=== PATIENT | male | born 1975 | race Hispanic/Latino ===

== ENCOUNTER 2018-08-09 10:41 | Inpatient (IN) | payer OTHER ==
[~2018-08-09] VITALS: Ht 167.6 cm; Wt 79.2 kg
[2018-08-09] MEDS ORDERED: ONDANSETRON HCL 4 MG/2 ML VIAL ONE (11:03)
[2018-08-09] MEDS ORDERED: MORPHINE SULFATE 4 MG/1ML SYG ONE (11:03)
[2018-08-09 11:09] LABS: BASOPHILS % (AUTO) 0.3 % (0.0-5.0); EOSINOPHILS % (AUTO) 0.1 % (0.0-8.0); HEMATOCRIT 55.3 % (42-54); LYMPHOCYTES % (AUTO) 5.4 % (21.0-51.0); MEAN CORPUSCULAR HEMOGLOBIN 29.7 pg (27.0-33.0); MEAN CORPUSCULAR HGB CONC 33.9 g/dL (32.0-36.0); MEAN CORPUSCULAR VOLUME 87.6 fL (79-99); MONOCYTES % (AUTO) 5.5 % (3.0-13.0); NEUTROPHILS % (AUTO) 88.7 % (40.0-77.0); NUCLEATED RED BLOOD CELLS 0.1 % (0.0-0.19); PLATELET COUNT (AUTO) 288 K/uL (130-400); RED BLOOD CELL COUNT(AUTO) 6.32 MIL/uL (4.50-6.20); RED CELL DISTRIBUTION WIDTH 13.3 % (11.0-15.5); WHITE BLOOD COUNT (AUTO) 9.8 K/uL (4.8-10.8)
[2018-08-09] MEDS ORDERED: SODIUM CHLORIDE 0.9% 1000ML 2,000 ML IV ONE (11:09)
[2018-08-09] MEDS ORDERED: ZOSYN 3.375GM+NS 50ML 50 ML IV ONE (11:16)
[2018-08-09 11:19] LABS: CARBON DIOXIDE 20 mmol/L (21-32); CHLORIDE 96 mmol/L (101-111); CREATININE 1.3 mg/dL (0.5-1.5); GLOMERULAR FILTR. RATE CALC 64 mL/min (>60); GLUCOSE,RANDOM 147 mg/dL (70-105); POTASSIUM 3.1 mmol/L (3.5-5.1); SODIUM SERUM 134 mmol/L (136-145); UREA NITROGEN, BLOOD 15 mg/dL (7-18)
[2018-08-09 11:34] LABS: ALANINE AMINOTRANSFERASE 25 U/L (12-78); ASPARTATE AMINOTRANSFERASE 15 U/L (10-37); BILIRUBIN,TOTAL 0.4 mg/dL (0.2-1.0); CREATINE KINASE, TOTAL 122 U/L (21-232); MYOGLOBIN 49 ng/mL (10-92); TOTAL PROTEIN, SERUM 9.2 g/dL (6.0-8.3); TROPONIN I < 0.04 ng/mL (0.00-0.06)
[2018-08-09 11:42] LABS: INR 0.89 (0.85-1.15); PARTIAL THROMBOPLASTIN TIME 28.8 SEC (26.3-35.5); PROTHROMBIN TIME 9.4 SEC (9.6-11.6)
[2018-08-09] MEDS: SODIUM CHLORIDE 0.9% 1000ML 1,000 ML IV SCH (15:34)
[2018-08-09] MEDS ORDERED: ACETAMINOPHEN 325 MG TAB PO PRN ×2 (15:45)
[2018-08-09] MEDS ORDERED: ONDANSETRON HCL 4 MG/2 ML VIAL IV PRN (15:45)
[2018-08-09] MEDS ORDERED: METRONIDAZOLE 500MG/100ML BAG 100 ML ONE (16:19)
[2018-08-09] MEDS ORDERED: SODIUM CHLORIDE 0.9% 1000ML 1,000 ML IV ONE (16:20)
[2018-08-09 16:27] LABS: MAGNESIUM 1.9 mg/dL (1.80-2.40); PHOSPHORUS 3.8 mg/dL (2.5-4.9)
[2018-08-09] MEDS ORDERED: MORPHINE SULFATE 2 MG/ML 1ML SYG ONE ×2 (16:55→21:30)
[2018-08-09 22:55] VITALS: BP 145/89
--- NOTE | 2018-08-09 23:00 | NUR ---
ADMIT PT ADMITTED TO ROOM 313. AAOX3, DENIES ANY ABDOMINAL PAINS AT THIS TIME. ADMISSION CARE DONE. ADMISSION DATA BASE COMPLETED. IVF FROM ER PLACED IN THE IV PUMP THEN REGULATED AT 100CC/HR. PENDING MEDS OF PEPCID AND FLAGYL IV ADMINISTERED. ORIENTED TO ROOM AND UNIT. IN FOR MORE CARE AND MANAGEMENT. Addendum: 08/10/18 at 0055 by ALONSO POE RN RN Amended: Links added.
[2018-08-09] MEDS: METRONIDAZOLE 500MG/100ML BAG 100 ML IV SCH (23:42)
[2018-08-09] MEDS: FAMOTIDINE/PF 20 MG/2 ML VIAL IV SCH (23:42)
[2018-08-10] VITALS: BP 124/65
--- NOTE | 2018-08-10 00:10 | NUR ---
STOOL PT HAD A LOOSE BM, COLLECTED STOOL FOR GI PCR. SENT TO LAB. PT PROVIDED WITH ICE WATER, APPLE JUICE AND JELL-O. KEPT RESTED AND COMFORTABLE. CALL LIGHT WITHIN REACH. WILL MONITOR PT.
[2018-08-10] MEDS: SODIUM CHLORIDE 0.9% 1000ML 1,000 ML IV SCH ×3 (00:56→21:34)
--- NOTE | 2018-08-10 02:00 | NUR ---
ROUNDS PT FAIRLY ASLEEP WITH RESPIRATIONS EVEN AND UNLABORED. NO NOTED DISTRESS. KEPT UNDISTURBED FOR NOW. CALL LIGHT WITHIN REACH. WILL MONITOR PT.
[2018-08-10 04:00] VITALS: BP 125/74
[2018-08-10] MEDS: MORPHINE SULFATE 2 MG/ML 1ML SYG IV PRN ×4 (04:12→23:26)
--- NOTE | 2018-08-10 06:18 | NUR ---
PAINS PT CALLS FOR PAIN MEDS FOR ABDOMINAL PAINS. MEDICATED WITH MORPHINE IV. KEPT COMFORTABLE. WILL RE-ASSESS PT.
[2018-08-10] MEDS: METRONIDAZOLE 500MG/100ML BAG 100 ML IV SCH ×3 (07:20→23:29)
[2018-08-10] MEDS: FAMOTIDINE/PF 20 MG/2 ML VIAL IV SCH ×2 (07:20→21:14)
[2018-08-10 07:45] VITALS: BP 141/79
[2018-08-10 10:09] LABS: BASOPHILS % (AUTO) 0.8 % (0.0-5.0); EOSINOPHILS % (AUTO) 0.8 % (0.0-8.0); LYMPHOCYTES % (AUTO) 21.7 % (21.0-51.0); MEAN CORPUSCULAR HEMOGLOBIN 31.1 pg (27.0-33.0); MEAN CORPUSCULAR HGB CONC 35.1 g/dL (32.0-36.0); MEAN CORPUSCULAR VOLUME 88.5 fL (79-99); NEUTROPHILS % (AUTO) 65.7 % (40.0-77.0); PLATELET COUNT (AUTO) 227 K/uL (130-400); RED BLOOD CELL COUNT(AUTO) 5.08 MIL/uL (4.50-6.20); RED CELL DISTRIBUTION WIDTH 13.3 % (11.0-15.5)
[2018-08-10 10:14] LABS: CRP QUANTITATIVE 71.3 mg/L (0.00-9.0); POTASSIUM 3.1 mmol/L (3.5-5.1)
[2018-08-10] MEDS ORDERED: VENL75 PO (10:31)
[2018-08-10] MEDS ORDERED: HYDR-3421 PO (10:31)
[2018-08-10] MEDS ORDERED: GABA600T10 PO (10:31)
[2018-08-10 10:36] LABS: INR 0.89 (0.85-1.15); PROTHROMBIN TIME 9.4 SEC (9.6-11.6)
[2018-08-10 11:00] VITALS: BP 146/88
[2018-08-10] MEDS ORDERED: LIDOCAINE HCL-MPF 1% 2ML VIAL IVP PRN (11:45)
[2018-08-10] MEDS ORDERED: POTASSIUM CHLORIDE 10% ELIXIR 20 MEQ/15 ML UDCUP PO PRN (11:45)
[2018-08-10] MEDS ORDERED: POTASSIUM CHLORIDE 20MEQ/100ML 100 ML IV PRN (11:45)
[2018-08-10] MEDS ORDERED: HYDROXYZINE HCL 25 MG TABLET PO PRN (12:45)
[2018-08-10] MEDS: VENLAFAXINE HCL 75 MG TAB PO SCH (13:18)
[2018-08-10] MEDS: GABAPENTIN 300 MG CAPSULE PO SCH ×2 (13:18→21:14)
[2018-08-10] MEDS: POTASSIUM CHLORIDE 20 MEQ ERTAB PO PRN ×3 (14:00→21:14)
--- NOTE | 2018-08-10 14:30 | NUR ---
INITIAL MET W PATIENT; ALONE, STATES DOES NOT KNOW WHERE IS IS GOING TO LIVE AFTER DISCHARGE; STES USES NO DME; INDP OF ADLS; STATES IS A DRINKER, DRINKS EVERY DAY, IF HE STOPS DRINKNING HE WILL DIES PER THE MDS. HAS NOT HAD A DRINK SHANKAR 3 DAYS; WAS IN [employer]. Addendum: 08/10/18 at 1829 by CLAIRE MALHOTRA RN CM Amended: Links added.
[2018-08-10 15:48] LABS: APPEARANCE,URINE Clear (CLEAR); BILIRUBIN,URINE Negative (NEGATIVE); COLOR,URINE Yellow (YELLOW); GLUCOSE, URINE (UA) Negative (NEGATIVE); KETONES,URINE 15 mg/dL (NEGATIVE); LEUKOCYTE ESTERASE ,URINE Trace (NEGATIVE); NITRATE,URINE Negative (NEGATIVE); OCCULT BLOOD,URINE Negative (NEGATIVE); PH,URINE 6.5 (5.0-8.0); PROTEIN,URINE Trace mg/dL (NEGATIVE); UROBILINOGEN,URINE 0.2 mg/dL (0.2-1.0)
[2018-08-10 15:52] LABS: AMPHET/METH SCREEN,URINE NEGATIVE (NEGATIVE); BARBITURATE SCREEN, URINE NEGATIVE (NEGATIVE); BENZODIAZEPINES SCREEN,URINE NEGATIVE (NEGATIVE); CANNABINOID SCREEN,URINE POSITIVE (NEGATIVE); COCAINE SCREEN,URINE POSITIVE (NEGATIVE); OPIATE SCREEN,URINE POSITIVE (NEGATIVE); PHENCYCLIDINE SCREEN,URINE NEGATIVE (NEGATIVE)
[2018-08-10 16:00] VITALS: BP 152/111
--- NOTE | 2018-08-10 16:00 | NUR ---
TONY Antony 'HOME' WILL TALK TO PT AGAIN ABOUT LIVING ARRANGMENT POST DISCHARGE. ALERTED CHARGE NURSE TO DRINKING HABITS AND POSSIBLE NEED FOR WITHDRAWAL PROTOCOL. Addendum: 08/10/18 at 1829 by CLAIRE MALHOTRA RN CM Amended: Links added.
[2018-08-10 16:06] LABS: RBC,URINE 0-1 /HPF (0-1)
[2018-08-10 16:08] LABS: BACTERIA,URINE Rare /HPF (None Seen); MUCUS,URINE Few LPF (None Seen); SQUAMOUS EPITHELIAL CELL,UR Rare /HPF (0-2)
[2018-08-10] MEDS ORDERED: PEG 3350/NA SULF,BICARB,CL/KCL 4000 ML SOLN PO SCH (17:00)
--- NOTE | 2018-08-10 17:03 | NUR ---
DIRK JUAN MANUEL PREP AT T HE BEDSIDE ORDER FOR PREPING FOR A COLONSCOPY IN AM.
[2018-08-10 20:00] VITALS: BP 157/105
--- NOTE | 2018-08-10 20:59 | NUR ---
NOTE PATIENT TAKING PREP WELL. HAVING STOOLS. NOTIFIED PATIENT TO CALL TO SEE STOOLS.
--- NOTE | 2018-08-10 22:20 | NUR ---
NOTE STOOL CLEAR GREEN TINGED. MINIMAL AMOUNT OF SOLID SPECKS NOTED. CONTINUES TAKING PREP.
--- NOTE | 2018-08-10 23:55 | NUR ---
NOTE PATIENT FINISHED WITH PREP. STOOLS ARE NOW LIGHT YELLOW IN COLOR WITH NO SOLID MATTER NOTED.
[2018-08-11] VITALS (12 sets, daily range): BP systolic 101–157; BP diastolic 69–105
[2018-08-11 06:08] LABS: CREATININE 0.9 mg/dL (0.5-1.5); POTASSIUM 3.6 mmol/L (3.5-5.1)
[2018-08-11] MEDS ORDERED: PROPOFOL 10 MG/ML 20ML VIAL IV ONE (06:19)
[2018-08-11] MEDS ORDERED: MIDAZOLAM HCL 1 MG/ML 2ML VIAL ONE (06:19)
--- NOTE | 2018-08-11 07:25 | NUR ---
Report received from GI lab , alert and oriented x3 b/p 128/90 o2 sats 99 on room air p 81 Cortes pain will continue to monitor. receive diet order for soft diet.
[2018-08-11] MEDS: FAMOTIDINE/PF 20 MG/2 ML VIAL IV SCH (08:25)
[2018-08-11] MEDS: METRONIDAZOLE 500MG/100ML BAG 100 ML IV SCH ×2 (08:25→16:00)
[2018-08-11] MEDS: SODIUM CHLORIDE 0.9% 1000ML 1,000 ML IV SCH ×2 (08:26→17:34)
[2018-08-11] MEDS: VENLAFAXINE HCL 75 MG TAB PO SCH (08:26)
[2018-08-11] MEDS: GABAPENTIN 300 MG CAPSULE PO SCH ×2 (08:27→14:10)
--- NOTE | 2018-08-11 10:05 | NUR ---
+UDS Sw met with pt who states he is staying with the father of a friend and works. Pt has a 24yro son that he has not contat with, been 3xs, is a retired . Pt states he has PTSD and IED, and may be Bipolar was as well. Pt is seen at [facility] for psych care and meds but reports that [place] psych care is very unreliable ( psychiatrist are changed offend, and this causes delays and changes in treatment and meds). Pt states that THC is only thing that helps keep him stable, and cocaine is to help him sleep. "I am not going to stop". "I am going to stop drinking, I have to. I am not going thru this pain again". Sw offered resources and pt refused
--- NOTE | 2018-08-11 19:00 | NUR ---
PATIENT GIVEN DISCHARGE INSTRUCTION AND VERBALIZED UNDERSTANDING , IV REMOVED WITH CATHETER INTACT , NO QUESTIONS OR CONCERN VOICED PATIENT TO FOLLOW-UP WITH DR JUDD IN 1 ONE AND IS TO CALL FOR AN APPOINTMENT , PATIENT TRANSPORTED VIA WHEELCHAIR TO LOBBY WITH MOTHER AT HIS SIDE AND LEFT FOR HOME
== END 2018-08-11 19:00 | disposition home or self-care (01) | DRG 391 ==
LOC: EDH 10:41 → EDHIP 15:34 → 3CH 23:10
PROVIDERS: ADMIT Internal Medicine; ATTEND Internal Medicine
PROC: 0DBB8ZX Excision of Ileum, Via Natural or Artificial Opening Endoscopic, Diagnostic (ICD-10-PCS; principal; 2018-08-11)
PROC: 0DBL8ZX Excision of Transverse Colon, Via Natural or Artificial Opening Endoscopic, Diagnostic (ICD-10-PCS; 2018-08-11)
PROC: 0DBP8ZX Excision of Rectum, Via Natural or Artificial Opening Endoscopic, Diagnostic (ICD-10-PCS; 2018-08-11)
PROC: 0DBF8ZX Excision of Right Large Intestine, Via Natural or Artificial Opening Endoscopic, Diagnostic (ICD-10-PCS; 2018-08-11)
PROC: 0DBG8ZX Excision of Left Large Intestine, Via Natural or Artificial Opening Endoscopic, Diagnostic (ICD-10-PCS; 2018-08-11)
DX: A09 Infectious gastroenteritis and colitis, unspecified (principal); K57.31 Diverticulosis of large intestine without perforation or abscess with bleeding; E87.1 Hypo-osmolality and hyponatremia; E86.1 Hypovolemia; E87.6 Hypokalemia; F17.210 Nicotine dependence, cigarettes, uncomplicated; F43.10 Post-traumatic stress disorder, unspecified; K64.0 First degree hemorrhoids
CPT/HCPCS: 36415; 45380; 71045; 74176; 80048; 80053; 80305; 81001; 82550; 83605; 83735; 83874; 84100; 84484; 85025; 85610; 85651; 85730; 86140; 87040; 87046; 87088; 87324; 93005; G0378; J2250; J2270; J2405; J2543; J2704; J3490; J7030

== ENCOUNTER 2021-01-18 12:29 | Emergency (ER) | payer OTHER ==
[~2021-01-18] VITALS: Ht 167.6 cm; Wt 80.7 kg
[~2021-01-18 12:29] MED LIST: GABA600T10 PO; HYDR-3421 PO; VENL75 PO
[2021-01-18 12:43] VITALS: BP 156/105
[2021-01-18] MEDS ORDERED: ONDANSETRON 4MG INJ IVP SCH (13:00)
[2021-01-18 13:08] LABS: BASOPHILS % (AUTO) 0.3 % (0.0-5.0); HEMATOCRIT 47.7 % (42-54); LYMPHOCYTES % (AUTO) 7.1 % (21.0-51.0); MEAN CORPUSCULAR HGB CONC 33.5 g/dL (32.0-36.0); MEAN CORPUSCULAR VOLUME 89.5 fL (79-99); MONOCYTES % (AUTO) 5.3 % (3.0-13.0); PLATELET COUNT (AUTO) 278 K/uL (130-400); RED BLOOD CELL COUNT(AUTO) 5.33 MIL/uL (4.50-6.20); RED CELL DISTRIBUTION WIDTH 13.1 % (11.0-15.5); WHITE BLOOD COUNT (AUTO) 7.9 K/uL (4.8-10.8)
[2021-01-18 13:22] LABS: CREATININE 1.1 mg/dL (0.5-1.5); POTASSIUM 3.7 mmol/L (3.5-5.1)
[2021-01-18 13:26] LABS: ALBUMIN 3.9 g/dL (3.5-5.0); BILIRUBIN,TOTAL 0.3 mg/dL (0.2-1.0); CRP QUANTITATIVE 16.6 mg/L (0.00-9.0); TOTAL PROTEIN, SERUM 8.1 g/dL (6.0-8.3)
[2021-01-18 13:43] LABS: APPEARANCE,URINE Cloudy (CLEAR); BILIRUBIN,URINE Negative (NEGATIVE); COLOR,URINE Dark Yellow (YELLOW); GLUCOSE, URINE (UA) Negative (NEGATIVE); KETONES,URINE Trace mg/dL (NEGATIVE); LEUKOCYTE ESTERASE ,URINE Trace (NEGATIVE); NITRATE,URINE Negative (NEGATIVE); OCCULT BLOOD,URINE Trace (NEGATIVE); PROTEIN,URINE POS 1+ mg/dL (NEGATIVE)
[2021-01-18] MEDS ORDERED: CIPR500S4 PO (13:50)
[2021-01-18] MEDS ORDERED: DICY20TA2 PO (13:50)
[2021-01-18] MEDS ORDERED: ONDA4TAB4 PO (13:50)
[2021-01-18] MEDS ORDERED: METR375C2 PO (13:50)
[2021-01-18 13:58] LABS: BACTERIA,URINE Rare /HPF (None Seen); MUCUS,URINE Moderate LPF (None Seen); SQUAMOUS EPITHELIAL CELL,UR Rare /HPF (0-2)
[2021-01-18] MEDS ORDERED: METRONIDAZOLE 500 MG TABLET PO SCH (14:00)
[2021-01-18] MEDS ORDERED: MORPHINE 2 MG SYG IVP ONE (14:00)
[2021-01-18] MEDS ORDERED: LEVOFLOXACIN 500 MG TABLET PO SCH (14:00)
== END 2021-01-18 14:10 | disposition home or self-care (01) ==
LOC: EDH 12:29
DX: K52.9 Noninfective gastroenteritis and colitis, unspecified (principal); K57.30 Diverticulosis of large intestine without perforation or abscess without bleeding; F41.9 Anxiety disorder, unspecified; I10 Essential (primary) hypertension; Z71.6 Tobacco abuse counseling; F17.200 Nicotine dependence, unspecified, uncomplicated; Z79.899 Other long term (current) drug therapy
CPT/HCPCS: 36415; 71045; 74176; 80053; 81001; 83690; 84484; 85025; 86140; 93005; 96374; 99285; J2405

== ENCOUNTER 2021-05-30 09:19 | Emergency (ER) | payer OTHER ==
[~2021-05-30] VITALS: Ht 167.6 cm; Wt 81.6 kg
[~2021-05-30 09:19] MED LIST changes: +CIPR500S4 PO; +DICY20TA2 PO; +METR375C2 PO; +ONDA4TAB4 PO
[2021-05-30 09:24] VITALS: BP 145/86
[2021-05-30] MEDS ORDERED: KETOROLAC 60 MG VIAL (30MG/ML) ONE (09:40)
[2021-05-30] MEDS ORDERED: KETOROLAC 15MG/ML VIAL (15MG/ML) IV ONE (10:00)
[2021-05-30] MEDS ORDERED: KETOROLAC 30MG VIAL (30MG/ML) IM ONE (10:00)
[2021-05-30] MEDS ORDERED: IBUP-2070 PO (10:43)
[2021-05-30] MEDS ORDERED: LIDOCAINE 5% TOPICAL PATCH TP ONE (10:47)
[2021-05-30] MEDS ORDERED: LIDOCAINE 5% TOPICAL PATCH TP SCH (11:00)
== END 2021-05-30 10:57 | disposition home or self-care (01) ==
LOC: EDH 09:19
DX: S46.912A Strain of unspecified muscle, fascia and tendon at shoulder and upper arm level, left arm, initial encounter (principal); F43.10 Post-traumatic stress disorder, unspecified; I10 Essential (primary) hypertension; F17.200 Nicotine dependence, unspecified, uncomplicated; Z90.49 Acquired absence of other specified parts of digestive tract; Z79.899 Other long term (current) drug therapy; X58.XXXA Exposure to other specified factors, initial encounter; Y93.89 Activity, other specified; Y92.89 Other specified places as the place of occurrence of the external cause; Y99.8 Other external cause status
CPT/HCPCS: 73030; 96372; 99283; J1885

== ENCOUNTER 2022-09-26 15:28 | Emergency (ER) | payer BC, OTHER ==
[~2022-09-26] VITALS: Ht 167.6 cm; Wt 84.4 kg
[~2022-09-26 15:28] MED LIST changes: +IBUP-2070 PO
[2022-09-26 16:11] LABS: BASOPHILS % (AUTO) 0.5 % (0.0-5.0); EOSINOPHILS % (AUTO) 0.5 % (0.0-8.0); HEMATOCRIT 45.3 % (42-54); MEAN CORPUSCULAR HEMOGLOBIN 30.1 pg (27.0-33.0); MEAN CORPUSCULAR HGB CONC 33.8 g/dL (32.0-36.0); MONOCYTES % (AUTO) 7.7 % (3.0-13.0); NEUTROPHILS % (AUTO) 73.8 % (40.0-77.0); PLATELET COUNT (AUTO) 387 K/uL (130-400); RED BLOOD CELL COUNT(AUTO) 5.09 MIL/uL (4.50-6.20); RED CELL DISTRIBUTION WIDTH 13.2 % (11.0-15.5); WHITE BLOOD COUNT (AUTO) 8.3 K/uL (4.8-10.8)
[2022-09-26 16:50] LABS: ALBUMIN 3.9 g/dL (3.5-5.0); POTASSIUM 3.7 mmol/L (3.5-5.1); TOTAL PROTEIN, SERUM 7.9 g/dL (6.0-8.3)
[2022-09-26] MEDS ORDERED: ONDANSETRON 4MG INJ IVP SCH (17:30)
[2022-09-26] MEDS ORDERED: ONDANSETRON ODT 4MG TAB SL ONE (17:30)
[2022-09-26] MEDS ORDERED: LORAZEPAM 1 MG TABLET PO SCH (17:30)
[2022-09-26] MEDS ORDERED: VENLAFAXINE HCL 75 MG TAB PO SCH (17:30)
[2022-09-26 18:33] VITALS: BP 132/76
[2022-09-26] MEDS ORDERED: VENL-191 PO (18:33)
== END 2022-09-26 18:40 | disposition home or self-care (01) ==
LOC: EDH 15:28
DX: R11.2 Nausea with vomiting, unspecified (principal); T43.215A Adverse effect of selective serotonin and norepinephrine reuptake inhibitors, initial encounter; Y92.89 Other specified places as the place of occurrence of the external cause; F43.10 Post-traumatic stress disorder, unspecified; I10 Essential (primary) hypertension; F41.9 Anxiety disorder, unspecified; F32.A Depression, unspecified; F17.200 Nicotine dependence, unspecified, uncomplicated; Z79.899 Other long term (current) drug therapy; Z90.49 Acquired absence of other specified parts of digestive tract; Z98.890 Other specified postprocedural states
CPT/HCPCS: 36415; 71045; 80053; 82550; 84484; 85025; 93005

== ENCOUNTER 2024-08-19 07:53 | Emergency (ER) | payer OTHER ==
[~2024-08-19] VITALS: Ht 167.6 cm; Wt 86.2 kg
[~2024-08-19 07:53] MED LIST changes: +GABA-1405 PO; -GABA600T10 PO; +VENL-83 PO
--- NOTE | 2024-08-19 08:11 | NUR ---
REFER TO TRAUMA FLOW SHEET
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
[2024-08-19] MEDS: LACTATED RINGERS 1000ML IV STA (08:34)
[2024-08-19] MEDS: ketOROlac 30MG VIAL (30MG/ML) IVP ONE (08:34)
[2024-08-19] MEDS: CYCLOBENZAPRINE HCL 10 MG TABLET PO ONE (08:34)
[2024-08-19] MEDS: hydroMORPHone 2 MG VIAL (2MG/ML) IVP ONE (08:34)
[2024-08-19 08:49] LABS: BASOPHILS # (AUTO) 0.05 K/uL (0.00-0.20); BASOPHILS % (AUTO) 0.6 % (0.0-5.0); EOSINOPHILS # (AUTO) 0.07 K/uL (0.00-0.70); EOSINOPHILS % (AUTO) 0.9 % (0.0-8.0); HEMATOCRIT 42.5 % (42-54); IMMATURE GRANULOCYTE ABSOLUTE 0.06 K/uL (0-1); LYMPHOCYTES % (AUTO) 12.7 % (21.0-51.0); MEAN CORPUSCULAR HGB CONC 34.1 g/dL (32.0-36.0); MONOCYTES # (AUTO) 0.7 K/uL (0.1-1.0); MONOCYTES % (AUTO) 8.1 % (3.0-13.0); NEUTROPHILS # (AUTO) 6.3 K/uL (1.8-7.7); PLATELET COUNT (AUTO) 347 K/uL (130-400); RED CELL DISTRIBUTION WIDTH 13.5 % (11.0-15.5); WHITE BLOOD COUNT (AUTO) 8.2 K/uL (4.8-10.8)
[2024-08-19 08:55] LABS: CREATININE 0.8 mg/dL (0.5-1.3); POTASSIUM 3.4 mmol/L (3.5-5.1)
--- NOTE | 2024-08-19 09:17 | HMCIMG ---
PELVIS 1-2VWS HISTORY: Trauma COMPARISON: None TECHNIQUE: Frontal projection of the pelvis was obtained. FINDINGS: There is no acute displaced fracture or dislocation. Degenerative changes are seen. IMPRESSION: 1. Findings as described above.
--- NOTE | 2024-08-19 10:51 | HMCIMG ---
CERV SPINE 2-3VWS HISTORY: Injury COMPARISON: None FINDINGS: 4 images of cervical spine were obtained. There is straightening of normal lordotic curvature which may be related to muscle spasm or positioning. No loss of vertebral height is seen. No fracture or dislocation is seen. Degenerative changes are seen. IMPRESSION: 1. No fracture is seen.
--- NOTE | 2024-08-19 10:52 | HMCIMG ---
HIP UNILAT 2-3VW RIGHT HISTORY: Injury COMPARISON: None TECHNIQUE: 2 images of right hip were obtained. FINDINGS: There is no acute displaced fracture or dislocation. Minimal degenerative changes are seen. IMPRESSION: 1. Findings as described above.
[2024-08-19] MEDS ORDERED: CYCL10TA16 PO (10:55)
--- NOTE | 2024-08-19 11:02 | HMCIMG ---
CHEST 1VW HISTORY: Injury COMPARISON: 08/19/2024 FINDINGS: A frontal projection of the chest was obtained. No acute pulmonary infiltrates is seen. The heart is normal in size. Prominent interstitial markings are seen. Mild degenerative changes are seen. No evidence of aortic calcification is seen. IMPRESSION: 1. No acute pulmonary infiltrate is seen.
--- NOTE | 2024-08-19 11:04 | HMCIMG ---
RIBS UNI RT W PA CHEST 3+ VWS REASON: INJURY. COMPARISON: None TECHNIQUE: Frontal projection of the chest was obtained. 4 images of right ribs were obtained. FINDINGS: No acute pulmonary infiltrates is seen. The heart is not enlarged. Degenerative changes are seen. There are nondisplaced right seventh and eighth rib fractures.. IMPRESSION: Findings as described above.
[2024-08-19] MEDS: DiphenhydrAMINE HCL 50 MG/ML VIAL IV ONE (11:25)
[2024-08-19 11:32] VITALS: BP 158/67; PULSE 78; RESP 16; TEMP 97.8; O2SAT 98
--- NOTE | 2024-08-19 11:35 | NUR ---
PT OUT AT 1135.
== END 2024-08-19 11:31 | disposition home or self-care (01) ==
LOC: EDH 07:53
DX: S22.41XA Multiple fractures of ribs, right side, initial encounter for closed fracture (principal); I10 Essential (primary) hypertension; F17.200 Nicotine dependence, unspecified, uncomplicated; Z79.899 Other long term (current) drug therapy; W18.39XA Other fall on same level, initial encounter; Y93.89 Activity, other specified; Y92.89 Other specified places as the place of occurrence of the external cause; Y99.8 Other external cause status
CPT/HCPCS: 99284; 96374; 96375; 71045; 96361; 80048; 85025; 36415; 72040; 73502; 71101; 72170; J1885; J7120; J1200; J1171